=== PATIENT | female | born 1960 ===

== ENCOUNTER 2022-08-06 17:35 | Outpatient (REF) | payer OTHER, SELFPAY ==
[2022-08-08 13:56] LABS: Chlamydia Result Negative (Negative); GC Result Negative (Negative)
== END 2022-08-06 17:36 | disposition home or self-care (01) ==
LOC: LBN 17:35
PROVIDERS: Visit Provider Advanced Practice Midwife
DX: N94.9 Unspecified condition associated with female genital organs and menstrual cycle (principal)
CPT/HCPCS: 87491; 87591; 87480; 87510; 87660

== ENCOUNTER 2023-05-17 16:11 | Outpatient (REF) | payer OTHER, SELFPAY ==
--- NOTE | 2023-05-17 15:00 | PAPFT_PTH ---
PATIENT: Allyson Burrell LOC: [facility] U#:[id number] AGE/SX: 63/F ROOM: RE05/17/[address]: Piedad Solano MD : 1960 BED: DIS: 05/17/2023 SPEC #: [id number] RECD: 05/17/23 18:04 STATUS: JER HERNANDEZ #: [id number] ARIA: 05/17/23 15:[address]: Piedad Solano DEPT: [facility] Cytology RECD BY: Sarah Wharton Tissues: 1 - CX/ENDOCX FOR PAP SMEARS Procedures: PAP THIN PREP/[facility] Screening HPV DNA PROBE Comments: [id number]
== END 2023-05-17 16:12 | disposition home or self-care (01) ==
LOC: LBN 16:11
PROVIDERS: Visit Provider Obstetrics & Gynecology
DX: Z12.4 Encounter for screening for malignant neoplasm of cervix (principal); Z11.51 Encounter for screening for human papillomavirus (HPV); R87.610 Atypical squamous cells of undetermined significance on cytologic smear of cervix (ASC-US)
CPT/HCPCS: 88142; 87624

== ENCOUNTER 2024-05-22 16:28 | Outpatient (REF) | payer BC, SELFPAY ==
--- NOTE | 2024-05-22 16:15 | PAPFT_PTH ---
PATIENT: Allyson Burrell LOC: [facility] U#:[id number] AGE/SX: 64/F ROOM: RE05/22/[address]: Piedad Solano MD : 1960 BED: DIS: 05/22/2024 SPEC #: [id number] RECD: 05/22/24 18:03 STATUS: JER REQ #: [id number] ARIA: 05/22/24 16:[address]: Piedad Solano DEPT: [facility] Cytology RECD BY: Sarah Wharton ENTERED: 05/22/24 18:03 SP TYPE: PAPFT OT DR: Unknown,Unknown Tissues: 1 - CX/ENDOCX FOR PAP SMEARS Procedures: PAP THIN PREP/[facility] Screening HPV DNA PROBE Comments: [id number] (HPV 16 & 18/45)
== END 2024-05-22 16:29 | disposition home or self-care (01) ==
LOC: LBN 16:28
PROVIDERS: Visit Provider Obstetrics & Gynecology
DX: Z12.31 Encounter for screening mammogram for malignant neoplasm of breast (principal); Z01.419 Encounter for gynecological examination (general) (routine) without abnormal findings
CPT/HCPCS: 88142; 87624

== ENCOUNTER 2025-06-15 14:55 | Outpatient (REF) | payer BC, SELFPAY ==
--- NOTE | 2025-06-15 14:47 | PAPFT_PTH ---
PATIENT: Allyson Burrell LOC: [facility] U#:[id number] AGE/SX: 65/F ROOM: RE06/15/[address]: Piedad Solano MD : 1960 BED: DIS: 06/15/2025 SPEC #: [id number] RECD: 06/15/25 16:19 STATUS: JER MARY #: [id number] ARIA: 06/15/25 14:[address]: Piedad Solano DEPT: [facility] Cytology RECD BY: Sarah Wharton ENTERED: 06/15/25 16:20 SP TYPE: PAPFT OTHR DR: Josh Nassar Tissues: 1 - CX/ENDOCX FOR PAP SMEARS Procedures: PAP THIN PREP/[facility] Screening HPV DNA PROBE Comments: [id number] (HPV 16 & 18/45)
== END 2025-06-15 14:56 | disposition home or self-care (01) ==
LOC: LBN 14:55
PROVIDERS: PCP Family Medicine; Visit Provider Obstetrics & Gynecology
DX: Z12.4 Encounter for screening for malignant neoplasm of cervix (principal)
CPT/HCPCS: 88142; 87624